=== PATIENT | female | born 1980 | race Caucasian/White ===

== ENCOUNTER 2020-12-25 11:45 | Emergency (ER) | payer OTHER, SELFPAY ==
[2020-12-25 11:57] VITALS: BP 151/86; PULSE 83; RESP 18; TEMP 36.9; O2SAT 100
--- NOTE | 2020-12-25 12:28 | ED.GENADULT ---
HPI - General Adult General Chief complaint: Upper Respiratory Infection Stated complaint: Sore Throat Time Seen by Provider: 12/25/20 12:13 Source: patient and RN notes reviewed Mode of arrival: ambulatory Limitations: no limitations History of Present Illness HPI narrative: Patient presents today complaining of 1 week history of sore throat that has been worse since yesterday. Denies any additional symptoms to include cough, rhinorrhea, fever, ear pain, nausea, vomiting, diarrhea. She currently rates her sore throat 5/10 and has tried no [id number] treatment prior to arrival. She has been vaccinated against COVID-19. MD complaint: Sore throat Related Data Home Medications Medication Instructions Recorded Confirmed fexofenadine [Lily] 60 mg PO Q12H 12/25/20 12/25/20 levonorgestrel-ethinyl estrad 1 tablet PO DAILY 12/25/20 12/25/20 [Nica (28)] metformin 500 mg PO DAILY 12/25/20 12/25/20 metoprolol tartrate 25 mg PO DAILY 12/25/20 12/25/20 Allergies Allergy/AdvReac Type Severity Reaction Status Date / Time No Known Allergies Allergy Mild Verified 12/25/20 11:58 Review of Systems Review of Systems: CONSTITUTIONAL: Denies body aches, fever, chills, or sweats. EYES: Denies visual changes, redness, or discharge. ENT: Denies rhinorrhea, congestion, or otalgia.+ Sore throat CARDIOVASCULAR: Denies chest pain, palpitations, or edema. RESPIRATORY: Denies cough or dyspnea. GASTROINTESTINAL: Denies abdominal pain, nausea, vomiting, or diarrhea. GENITOURINARY: Denies dysuria or hematuria. SKIN: Denies rash, itching, or wounds. MUSCULOSKELETAL: Denies back pain, joint pain, or myalgia. NEUROLOGIC: Denies headache, numbness, tingling, or weakness. PSYCH: Denies depression or anxiety. [facility] Past Medical History Medical History (Updated 12/25/20 @ 12:34 by Sabiha Brantley, [employer], ) Hypertension Comments At time of signature, I have reviewed and agree with nursing past medical, surgical, social and family history unless otherwise noted. Please see nursing chart for further information. There is no relevant family history pertinent to the presenting complaint Exam Narrative: GENERAL: Well-appearing, well-nourished, and in no acute distress. HEAD: Normocephalic, atraumatic. EYES: EOMI. No redness or drainage. Conjunctivae normal. ENT: Mucous membranes pink and moist. Nares clear. No rhinorrhea. TMs normal bilaterally. Throat with 2 erythematous ulcerations, 1 to the uvula, and 1 to the left palatine arch. Uvula midline. NECK: Normal AROM. Supple. No lymphadenopathy. CHEST: No respiratory distress. Clear to auscultation. HEART: Regular rate and rhythm. No murmur appreciated. Normal peripheral pulses. EXTREMITIES: Normal range of motion. No edema. SKIN: Warm, dry, no rash. Capillary refill normal. Normal skin turgor. NEURO: No focal deficits. Alert and oriented x3. Gait steady. PSYCH: Normal affect. No signs of depression or anxiety. Course Vital Signs Vital signs: Vital Signs Temperature 98.5 F 12/25/20 11:57 Pulse Rate 83 12/25/20 11:57 Respiratory Rate 18 12/25/20 11:57 Blood Pressure 151/86 H 12/25/20 11:57 Pulse Oximetry 100 12/25/20 11:57 Temperature 98.5 F 12/25/20 11:57 Pulse Rate 83 12/25/20 11:57 Respiratory Rate 18 12/25/20 11:57 Blood Pressure 151/86 H 12/25/20 11:57 Pulse Oximetry 100 12/25/20 11:57 Reviewed. Pt has been instructed to follow up with her PCP regarding her elevated blood pressure today. Medical Decision Making Differential Diagnosis Differential Diagnosis: URI, pharyngitis, tonsillitis, strep throat, aphthous ulcer, viral syndrome Vital Signs Vital Signs: Vital Signs Temperature 98.5 F 12/25/20 11:57 Pulse Rate 83 12/25/20 11:57 Respiratory Rate 18 12/25/20 11:57 Blood Pressure 151/86 H 12/25/20 11:57 Pulse Oximetry 100 12/25/20 11:57 Temperature 98.5 F 12/25/20 11:57 Pulse Rate 83 12/25/20 11:5
== END 2020-12-25 12:37 | disposition home or self-care (01) ==
PROVIDERS: Emergency Provider Nurse Practitioner
DX: K12.0 Recurrent oral aphthae (principal); I10 Essential (primary) hypertension
CPT/HCPCS: 87081; 87880; 99213; G0463